=== PATIENT | female | born 1980 ===

== ENCOUNTER → 2018-11-01 | Day surgery (SDC) | payer OTHER ==
[~2018-11-01] VITALS: Ht 172.7 cm; Wt 73.5 kg
[~2018-11-01] MED LIST: NKM
[2018-11-01 08:23] VITALS: BP 116/73
--- NOTE | 2018-11-01 08:44 | NUR ---
CASE CANCELLED DUE TO CENTRIFUGE NOT AVAILABLE PER DR GROVER.
--- NOTE | 2018-11-01 08:46 | Discharge Summary ---
Discharge Summary Hospital Course Date of Admission 11/01/18 Date of Discharge 11/01/18 Admitting Diagnosis lumbosacral spondylosis Reason for Hospitalization: was scheduled for a procedure, but centrifuge is not available. SUSANA Cordoba is a 38 year old female who was admitted on for Lumbosacral Spondylosis Procedures none Hospital Course procedure cancelled Discharge Condition Upon Discharge: unchanged Discharge Disposition Patient was discharged to Discharge Diagnoses: (1) Lumbosacral spondylosis with radiculopathy Discharge Instructions Discharge Instructions Follow up with: the procedure was cancelled due to no equipment Cris Wray MD Nov 01, 2018 08:46
== END | disposition home or self-care (01) ==
LOC: SDS 07:33
DX: M47.9 Spondylosis, unspecified (principal); Z53.8 Procedure and treatment not carried out for other reasons
CPT/HCPCS: 81025